=== PATIENT | male | born 1945 | race Caucasian/White ===

== ENCOUNTER 2016-07-25 05:58 | Observation (INO) | payer MEDICARE, BC ==
[2016-07-25] VITALS (12 sets, daily range): BP systolic 119–151; BP diastolic 70–93; PULSE 64–84; RESP 14–20; TEMP 97.6–98.1; O2SAT 93–99
[~2016-07-25] VITALS: Ht 182.9 cm; Wt 118.9 kg
[~2016-07-25 05:58] MED LIST: ALBU8I INH; B-12500T3 PO; CEFU1TAB43 PO; DILT180C56 PO; FOLI1 PO; HEPARIN SODIUM - IV 10,000 UNITS/10 ML VIAL ONE; HEPARIN-NS/PF INJ 500 ML ONE; LISI-357 PO; MIDAZOLAM HCL 2 MG/2 ML VIAL ONE; MOME17I; NITROGLYCERIN INJ 5 ML ONE; OMEP20TA PO; TAB-TAB PO; VERAPAMIL HCL 5 MG/2 ML VIAL ONE
[2016-07-25] MEDS ORDERED: SODIUM CHLORID 0.9% 500 ML IV SCH (06:45)
[2016-07-25] MEDS ORDERED: INSULIN HUMAN REGULAR 1,000 UNITS/10 ML VIAL SQ PRN (06:45)
[2016-07-25] MEDS ORDERED: SODIUM CHLORID 0.9% 500 ML INJ 500 ML IV SCH (06:45)
[2016-07-25] MEDS ORDERED: METOPROLOL TARTRATE 25 MG TAB PO PRN (06:45)
[2016-07-25] MEDS ORDERED: LACTATED RINGER'S 1000 ML IV SCH (06:45)
[2016-07-25] MEDS ORDERED: LORazepam 1 MG TAB SL SCH (06:45)
[2016-07-25 07:02] LABS: AUTOMATED NEUTROPHIL # 3.8 TH/MM3 (1.8-7.7); BASOPHIL % 0.4 % (0.0-2.0); EOSINOPHIL # 0.2 TH/MM3 (0-0.4); EOSINOPHIL % 3.3 % (0.0-4.0); HEMATOCRIT 41.6 % (39.0-51.0); HEMO FLAGS DIFF FINAL; LYMPH % 27.3 % (9.0-44.0); LYMPHOCYTE # 1.8 TH/MM3 (1.0-4.8); MEAN CELL VOLUME 89.9 FL (80.0-100.0); MEAN CORPUSCULAR HEMOGLOBIN 32.1 PG (27.0-34.0); MEAN CORPUSCULAR HGB CONC 35.7 % (32.0-36.0); MONO % 10.4 % (0.0-8.0); NEUT % 58.6 % (16.0-70.0); PLATELET COUNT 173 TH/MM3 (150-450); RED BLOOD COUNT 4.62 MIL/MM3 (4.50-5.90); RED CELL DISTRIBUTION WIDTH 14.1 % (11.6-17.2); WHITE BLOOD COUNT 6.5 TH/MM3 (4.0-11.0)
[2016-07-25 07:04] LABS: APTT (PATIENT) 33.1 SEC (24.3-30.1); INTERNATIONAL NORMALIZED RATIO 1.1 RATIO; PROTHROMBIN TIME - PATIENT 12.3 SEC (9.8-11.6)
[2016-07-25] MEDS ORDERED: XARE20TA PO (07:07)
[2016-07-25] MEDS ORDERED: ASPI1TAB69 PO (07:07)
[2016-07-25] MEDS ORDERED: LISI2.5T3 PO (07:07)
[2016-07-25] MEDS ORDERED: TORS10TA2 PO (07:07)
[2016-07-25] MEDS ORDERED: METO50TA11 PO (07:07)
[2016-07-25] MEDS ORDERED: PROS5TAB PO (07:07)
[2016-07-25] MEDS ORDERED: DIGO0.12 PO (07:07)
[2016-07-25] MEDS ORDERED: THIA100T PO (07:07)
[2016-07-25] MEDS ORDERED: OLAN10TA11 SL (07:07)
[2016-07-25] MEDS ORDERED: MELAPOW2 (07:07)
[2016-07-25] MEDS ORDERED: TAMS0.4C4 PO (07:07)
[2016-07-25] MEDS ORDERED: MAGN400T2 PO (07:07)
[2016-07-25] MEDS ORDERED: MULT1TAB84 PO (07:07)
[2016-07-25] MEDS ORDERED: RANI150C PO (07:08)
[2016-07-25] MEDS ORDERED: LECI1200 (07:08)
[2016-07-25] MEDS ORDERED: SERT25TA83 PO (07:08)
[2016-07-25] MEDS ORDERED: BIO-POW (07:08)
[2016-07-25] MEDS ORDERED: HEPARIN-D5W INJ 250 ML ONE ×2 (07:21→07:28)
[2016-07-25] MEDS ORDERED: ISOPROTERENOL HCL 1 MG/5 ML AMP ONE (07:21)
[2016-07-25] MEDS ORDERED: fentaNYL CITRATE 250 MCG/5 ML AMP ONE (07:22)
[2016-07-25] MEDS ORDERED: PROTAMINE SULFATE 50 MG/5 ML VIAL ONE (07:22)
[2016-07-25] MEDS ORDERED: HEPARIN-NS/PF INJ 500 ML ONE ×2 (07:24→07:38)
[2016-07-25] MEDS ORDERED: SODIUM CHLOR 0.9% 250 ML INJ 250 ML ONE (07:28)
[2016-07-25 07:36] LABS: BICARBONATE 28.7 MEQ/L (21.0-32.0)
[2016-07-25] MEDS ORDERED: LEVOFLOXACIN 500 MG PREMIX INJ 100 ML IV ONE (07:39)
[2016-07-25] MEDS ORDERED: ONDANSETRON HCL 4 MG/2 ML VIAL IV PUSH ONE (11:00)
[2016-07-25] MEDS ORDERED: PROPOFOL 200 MG/20 ML AMP IV ONE (11:00)
[2016-07-25] MEDS ORDERED: ONDANSETRON HCL 4 MG/2 ML VIAL IV PRN (11:45)
[2016-07-25] MEDS ORDERED: SODIUM CHLOR 0.9% 250 ML INJ 250 ML IV PRN (11:45)
[2016-07-25] MEDS ORDERED: ATROPINE SULFATE 1 MG/ML VIAL IV PRN (11:45)
[2016-07-25] MEDS ORDERED: oxyCODONE/ACETAMINOPHEN 5 MG/325 MG TAB PO PRN (11:45)
[2016-07-25] MEDS ORDERED: BACITRACIN OINT 0.9 GM PKT TOP ONE (11:45)
[2016-07-25] MEDS ORDERED: LORazepam 2 MG/ML VIAL IV PRN (11:45)
[2016-07-25] MEDS ORDERED: METOCLOPRAMIDE HCL 10 MG/2 ML VIAL IV PRN (11:45)
[2016-07-25] MEDS ORDERED: DO NOT ADM ANY ANTICOAGULANT DRUGS XX PRN (11:45)
[2016-07-25] MEDS ORDERED: LIDOCAINE HCL 1% 50 ML VIAL INFIL PRN (11:45)
--- NOTE | 2016-07-25 12:17 | PD.CARD ---
Atrial Fibrillation Ablation PROCEDURE DATE: Jul 25, 2016 PROCEDURES PERFORMED: 1. Electrophysiology study on Isuprel infusion 2. CS cannulation 3. 3-D mapping 4. Transseptal approach 5. Right and left heart catheterization 6. Intracardiac echo 7. Radiofrequency ablation of atrial fibrillation 8. Pulmonary vein isolation 9. Posterior wall ablation 10. Mitral valve isolation 11. Mitral line creation 12. Left atrial tachycardia ablation 13. Roof line creation 14. Floor line creation 15. Anterior and posterior ablation 16. Cardioversion INDICATIONS FOR THE PROCEDURE Mr. Witt is a 71-year-old male with atrial fibrillation referred for electrophysiology study and ablation. The patient is symptomatic and on anticoagulation. The risks, the nature and the benefits of the procedure were clearly stated to him. The risks include pneumothorax, cardiac perforation, stroke, need for open heart surgery and even . The patient understood and agreed to proceed. DESCRIPTION OF THE PROCEDURE IN DETAIL After written informed consent was obtained prior to esophageal echocardiogram, the patient was kept on the table where he was prepped and draped in the usual sterile fashion. Conscious sedation was initiated and maintained throughout the procedure by the anesthesiologist. Once sedation was verified, the right and left inguinal areas were anesthetized with 2% Xylocaine. Using modified Seldinger technique, the left femoral vein was cannulated on three occasions, three guidewires were advanced. Over the wire a 6, 7 and a 10-[place] Hemaquet were advanced. Then the left femoral artery was cannulated on one occasion, one guidewire was advanced. Over the wire a 4-[place] Hemaquet was advanced. Then the right femoral vein was cannulated on one occasion, one guidewire was advanced. Over the wire a 8-[place] Hemaquet was advanced. Then under fluoroscopic guidance through the 6 and 7-[place] Hemaquet, two 5-[place] Jey curved quadripolar electrophysiology catheters were advanced and placed around the His as well as coronary sinus. Basic interval was measured. The patient was in atrial fibrillation. Through the 10-[place] Hemaquet, a [employer] intracardiac echo catheter was advanced and placed at the right atrium. Multiple view was obtained. There is pericardial effusion, pulmonary vein was seen, atrial septal was visualized. Then the 8-[place] Hemaquet in the right femoral vein was exchanged for Agilis transseptal sheath that was placed all the way to the superior vena cava. Through the sheath a Светлана needle was advanced, then the sheath, the dilator and the needle were progressed until foci engaged. Once engaged, the needle was advanced. RF was delivered for 2 seconds. I was able to cross into the left atrium. Once the needle crossed, the dilator was advanced. Once the dilator crossed, the sheath was advanced. Once the sheath crossed, the dilator and the needle were removed. At this point I did flood the system and fluid movement was seen in the left atrium the indicates the sheath is in good position. The patient already received 10,000 units of heparin. The goal is to keep an ACT around 350 during ablation. Then through the sheath a [place] 20 pulse circumferential catheter was advanced. Using [employer] endocardial solution mapping system, a two-dimensional configuration of the left atrium was obtained. Points were taken at the left superior and inferior veins, right superior and inferior veins, mitral valve, and appendages. Then through the sheath a [place]. [place] TactiCath 65cm 3.5mm irrigated tipped mapping and radiofrequency ablation catheter was advanced. Esophageal probe was placed temperature monitoring during ablation. When it increased to 0.5 degrees Celsius above baseline, I moved to a different area of the atrium. First I did isolate the left superior and inferior vein. Posterior wall was ablated. A roof line was created. A floor line was created. A mitral line was created, then the mitral valve was isolated. I did create a line from the floor to the roof area, passing by the left atrial appendage. Then the right superior and inferior veins were isolated. At that point the patient was in left atrial tachycardia. I did ablated the septal wall as well part on the anterior wall. I did remap the atrium. There is no significant signal in the veins. At this point I decided to proceed with cardioversion. A 200 sync biphasic joule was delivered that converted the patient into sinus rhythm. At that point I did advance the circumferential catheter again into the vein. There was no signal into the vein, pacing from the vein showed no conduction to the atrium. Isuprel infusion was initiated at 20 mcg for over 10 minutes. No tachyarrhythmia was induced, post Isuprel no tachyarrhythmia was induced. At that point the procedure was complete. All catheters were removed, atrial septal sheath was exchanged for 9-[place] Hemaquet , intracardiac echo showed no pericardial effusion. There is still good flow in the pulmonary vein. The patient is going to be transferred to the recovery room. No incident report. The patient tolerated the procedure. Blood loss was minimal. FINDINGS 1. Electrocardiogram: At baseline the patient was in atrial fibrillation, post procedure the patient was in sinus rhythm. 2. Basic interval: Base cycle length was around 460. Post ablation she was around 980 milliseconds. AH at 98 and HV at 64 milliseconds. 3. Tachyarrhythmia: Atrial fibrillation was mapped and ablated. Atrial tachycardia was ablated. The ablation was successful. CONCLUSION Successful electrophysiology study, mapping, radiofrequency ablation of atrial fibrillation, left atrial tachycardia, pulmonary vein isolation, posterior ablation, mitral valve isolation, mitral line creation, roof line creation, floor line creation, left atrial tachycardia, and cardioversion. COMMENTS AND RECOMMENDATIONS The patient is going to be transferred to the telemetry unit. Will be observed and when stable can be discharged home. Amena Bliss MD Jul 25, 2016 12:16
[2016-07-25] MEDS ORDERED: PILL SPLITTER OTHER PRN (12:30)
[2016-07-25] MEDS ORDERED: FINASTERIDE 5 MG TAB PO SCH (18:00)
[2016-07-25] MEDS ORDERED: RIVAROXABAN 20 MG TAB PO SCH (18:00)
[2016-07-25] MEDS ORDERED: TAMSULOSIN HCL 0.4 MG CAP PO SCH (21:00)
[2016-07-25] MEDS ORDERED: OLANZapine ODT 10 MG TAB SL SCH (21:00)
--- NOTE | 2016-07-25 21:22 | EKG ---
Date Performed: 07/25/2016 Time Performed: 06:53:10 PTAGE: 71 years EKG: Atrial fibrillation with PVC(s) or aberrant ventricular conduction Poor R-wave progression Compared to previous tracing patient is now in atrial fibrillation. Abnormal ECG PREVIOUS TRACING : 05/01/2013 18.13 DOCTOR: Kristofer Campo Interpretating Date/Time 07/25/2016 21:21:20
--- NOTE | 2016-07-25 21:24 | EKG ---
Date Performed: 07/25/2016 Time Performed: 11:37:11 PTAGE: 71 years EKG: Sinus rhythm WITH FIRST DEGREE AV BLOCK NONSPECIFIC ST & T-WAVE ABNORMALITY COMPARED TO PREVIOUS TRACING PATIENT IS NOW IN NORMAL SINUS RHYTHM ABNORMAL ECG PREVIOUS TRACING : 07/25/2016 06.53 DOCTOR: Kristofer Campo Interpretating Date/Time 07/25/2016 21:22:18
[2016-07-25] MEDS: oxyCODONE/ACETAMINOPHEN 5 MG/325 MG TAB PO PRN (22:11)
[2016-07-26] VITALS (13 sets, daily range): BP systolic 139–144; BP diastolic 58–81; PULSE 65–95; RESP 14–18; TEMP 97.9–98.4; O2SAT 94–95
[2016-07-26] MEDS: oxyCODONE/ACETAMINOPHEN 5 MG/325 MG TAB PO PRN (05:43)
[2016-07-26 06:58] LABS: APTT (PATIENT) 37.3 SEC (24.3-30.1); INTERNATIONAL NORMALIZED RATIO 1.3 RATIO; PROTHROMBIN TIME - PATIENT 14.1 SEC (9.8-11.6)
[2016-07-26] MEDS ORDERED: FAMOTIDINE 20 MG TAB PO SCH (09:00)
[2016-07-26] MEDS ORDERED: SERTRALINE HCL 50 MG TAB PO SCH (09:00)
[2016-07-26] MEDS ORDERED: TORSEMIDE 5 MG TAB PO SCH (09:00)
[2016-07-26] MEDS ORDERED: MAGNESIUM OXIDE 400 MG TAB PO SCH (09:00)
[2016-07-26] MEDS ORDERED: LISINOPRIL 5 MG TAB PO SCH (09:00)
[2016-07-26] MEDS ORDERED: THIAMINE HCL 100 MG TAB PO SCH (09:00)
[2016-07-26] MEDS ORDERED: MULTIVITAMINS/MINERALS THERAPEUTIC TAB PO SCH (09:00)
--- NOTE | 2016-07-26 09:12 | PD.CARD.PN ---
Subjective Subjective Remarks Feels ok Objective Medications Current Medications Medications (Trade) Dose Ordered Sig/Renzo Route Start Time Stop Time Status Last Admin Sodium Chloride 500 ml @ 30 mls/hr [id number] IV 07/25/16 06:45 (Lr 1000 ml Inj) 1,000 ml @ 30 mls/hr Q24H IV 07/25/16 06:45 Miscellaneous Information ALL NURSING DEPARTME... UNSCH PRN XX 07/25/16 11:45 07/26/16 11:44 (Percocet 5-325 Mg) 1 tab Q4H PRN PO 07/25/16 11:45 (Percocet 5-325 Mg) 2 tab Q4H PRN PO 07/25/16 11:45 07/26/16 05:43 (Ativan Inj) 0.5 mg UNSCH PRN IV 07/25/16 11:45 07/26/16 11:44 Atropine Sulfate 0.5 mg 0.5 mg UNSCH PRN IV 07/25/16 11:45 (NS 250 ml Inj) 250 ml @ 500 mls/hr ONCE PRN IV 07/25/16 11:45 07/26/16 11:44 (Reglan Inj) 10 mg Q4H PRN IV 07/25/16 11:45 (Zofran Inj) 4 mg Q4H PRN IV 07/25/16 11:45 (Xylocaine 1% Inj (50 ml)) 10 ml UNSCH PRN INFIL 07/25/16 11:45 07/26/16 11:44 (Proscar) 5 mg DAILY@18 PO 07/25/16 18:00 07/25/16 17:37 (Prinivil) 2.5 mg DAILY PO 07/26/16 09:00 07/26/16 08:48 (Mag-Ox) 400 mg DAILY PO 07/26/16 09:00 07/26/16 08:48 (Theragran M Tab) 1 tab DAILY PO 07/26/16 09:00 07/26/16 08:48 (ZyPREXA ZYDIS ODT) 10 mg HS SL 07/25/16 21:00 07/25/16 22:11 (Pepcid) 20 mg BID PO 07/26/16 09:00 07/26/16 08:48 (Xarelto) 20 mg DAILY@18 PO 07/25/16 18:00 07/25/16 17:37 (Zoloft) 25 mg DAILY PO 07/26/16 09:00 07/26/16 08:49 (Flomax) 0.8 mg HS PO 07/25/16 21:00 07/25/16 22:11 (Vitamin B1) 100 mg DAILY PO 07/26/16 09:00 07/26/16 08:48 (Demadex) 10 mg DAILY PO 07/26/16 09:00 07/26/16 08:48 (Pill Splitter) 1 ea UNSCH PRN OTHER 07/25/16 12:30 Vital Signs / I&O Vital Signs Date Time Temp Pulse Resp B/P Pulse Ox O2 Delivery O2 Flow Rate FiO2 07/26/16 08:09 95 07/25/16 18:34 97.8 65 18 132/75 99 07/25/16 18:11 99 Nasal Cannula 2.00 07/25/16 17:39 97.8 72 18 133/76 99 07/25/16 16:30 97.6 71 18 119/72 98 07/25/16 16:04 97.6 64 18 128/70 99 07/25/16 16:00 97.6 84 18 128/70 99 07/25/16 13:30 78 14 143/77 98 Nasal Cannula 2 07/25/16 13:00 98.5 70 15 130/73 97 Nasal Cannula 2 07/25/16 12:45 73 17 138/67 98 Nasal Cannula 2 07/25/16 12:30 69 12 127/66 98 Nasal Cannula 2 07/25/16 12:15 67 12 124/71 98 Nasal Cannula 2 07/25/16 12:00 67 12 118/70 98 Nasal Cannula 2 07/25/16 11:45 68 12 118/67 98 Nasal Cannula 2 07/25/16 11:30 71 12 113/67 98 Nasal Cannula 2 07/25/16 11:20 97.6 83 12 116/64 99 Nasal Cannula 2 I/O 07/25/16 07/25/16 07/25/16 07/26/16 07/26/16 07/26/16 07:00 15:00 23:00 07:00 15:00 23:00 Intake Total 1700 ml 960 ml 720 ml Output Total 1825 ml 375 ml Balance -125 ml 585 ml 720 ml Intake Oral 300 ml 960 ml 720 ml Other 1400 ml Output Urine Total 1350 ml 375 ml Estimated Blood Loss 50 ml Other 425 ml Physical Exam GENERAL: Well-nourished, well-developed patient. SKIN: Warm and dry. Groin sites soft with no hematoma or bleeding. HEAD: Normocephalic. EYES: No scleral icterus. No injection or drainage. NECK: Supple, trachea midline. No JVD or lymphadenopathy. CARDIOVASCULAR: Regular rate and rhythm without murmurs, gallops, or rubs. RESPIRATORY: Breath sounds equal bilaterally. No accessory muscle use. GASTROINTESTINAL: Abdomen soft, non-tender, nondistended. EXTREMITIES: No cyanosis, or edema. NEUROLOGICAL: Awake, alert, and oriented x 3. Non-focal. Laboratory Laboratory Tests Test 07/26/16 05:15 Prothrombin Time 14.1 SEC Prothromb Time International 1.3 RATIO Ratio Activated Partial 37.3 SEC Thromboplast Time Assessment and Plan Problem List: (1) S/P ablation of atrial fibrillation Assessment and Plan: Stable, NSR on tele. DC home, f/u with Dr. Bliss in 3 weeks. (2) Atrial fibrillation Assessment and Plan: NSR on tele, s/p ablation. Assessment and Plan D/W pt., RN, Dr. Bliss. Problem Qualifiers (1) Atrial fibrillation: Qualified Code: I48.0 - Paroxysmal atrial fibrillation Vivienne Lo Jul 26, 2016 09:12
--- NOTE | 2016-10-07 15:11 | ETE ---
Study Study Date:07/25/2016 STUDY CONCLUSIONS SUMMARY - Left ventricle: The cavity size was normal. Wall thickness was normal. Systolic function was severely reduced. The estimated ejection fraction was in the range of 15% to 20%. Wall motion was normal; there were no regional wall motion abnormalities. - Aortic valve: No evidence of vegetation. - Mitral valve: No evidence of vegetation. - Left atrium: The atrium was moderately to severely dilated. No evidence of thrombus in the atrial cavity or appendage. No evidence of thrombus in the atrial cavity or appendage. - Right atrium: No evidence of thrombus in the atrial cavity or appendage. - Atrial septum: No defect or patent foramen ovale was identified. Echo contrast study showed no [id number] atrial level shunt, at baseline or with provocation. - Tricuspid valve: No evidence of vegetation. - Pulmonic valve: No evidence of vegetation. If LV function is below 40, please consider prescribing an ACEI or ARB or document rationale for non-use. PROCEDURE DATA Consent: The risks, benefits, and alternatives to the procedure were explained to the patient and informed consent was obtained. Procedure: Initial setup. The patient was brought to the laboratory in the fasting state. Intravenous access was obtained. Surface ECG leads and pulse oximetric signals were monitored. Sedation. Conscious sedation was administered by anesthesiology. Transesophageal echocardiography. Topical anesthesia was obtained using viscous lidocaine. A transesophageal probe was inserted by the attending dental treatment coordinator. Image quality was good. Study completion: All IVs inserted during the procedure were removed. The patient tolerated the procedure well. There were no complications. Transesophageal echocardiography. 2D, complete spectral Doppler, and color Doppler. CARDIAC ANATOMY LEFT VENTRICLE: The cavity size was normal. Wall thickness was normal. Systolic function was severely reduced. The estimated ejection fraction was in the range of 15% to 20%. Wall motion was normal; there were no regional wall motion abnormalities. AORTIC VALVE: Structurally normal valve. Trileaflet; normal thickness leaflets. Cusp separation was normal. No evidence of vegetation. Doppler: No significant regurgitation. Aorta: - There was no atheroma. There was no evidence for dissection. Aortic root: The aortic root was not dilated. Ascending aorta: The ascending aorta was normal in size. Aortic arch: The aortic arch was normal in size. Descending aorta: The descending aorta was normal in size. MITRAL VALVE: Structurally normal valve. Leaflet separation was normal. No evidence of vegetation. Doppler: Trace regurgitation. LEFT ATRIUM: The atrium was moderately to severely dilated. No evidence of thrombus in the atrial cavity or appendage. No evidence of thrombus in the atrial cavity or appendage. The appendage was morphologically a left appendage, multilobulated, and of normal size. Emptying velocity was normal. ATRIAL SEPTUM: No defect or patent foramen ovale was identified. Echo contrast study showed no [id number] atrial level shunt, at baseline or with provocation. RIGHT VENTRICLE: The cavity size was normal. Wall thickness was normal. Systolic function was normal. PULMONIC VALVE: Structurally normal valve. No evidence of vegetation. TRICUSPID VALVE: Structurally normal valve. Leaflet separation was normal. No evidence of vegetation. Doppler: No significant regurgitation. PULMONARY ARTERY: The main pulmonary artery was normal-sized. RIGHT ATRIUM: The atrium was normal in size. No evidence of thrombus in the atrial cavity or appendage. The appendage was morphologically a right appendage. PERICARDIUM: There was no pericardial effusion. Prepared and signed by Amena Bliss [id number]
== END 2016-07-26 11:30 | disposition home or self-care (01) ==
LOC: HDIC 05:58 → HDOC 05:58 → HCIS 06:13 → HDOC 14:52
PROVIDERS: ADMIT Internal Medicine Interventional Cardiology; ATTEND Internal Medicine Interventional Cardiology
DX: I48.2 Chronic atrial fibrillation (principal); I44.0 Atrioventricular block, first degree; I10 Essential (primary) hypertension; J45.909 Unspecified asthma, uncomplicated
CPT/HCPCS: 80048; 85002; 85025; 85610; 85730; 86850; 86900; 86901; 92960; 93005; 93312; 93320; 93325; 93613; 93623; 93656; 93662; C1730; C1731; C1732; C1759; C1766; C2630; G0378; J1644; J1956; J2250; J2405; J2720; J3010; J7050